=== PATIENT | male | born 1990 | race Two or more races ===

== ENCOUNTER 2018-09-25 05:43 | Emergency (ER) | payer SELFPAY ==
[2018-09-25] MEDS ORDERED: ONDANSETRON HCL INJ/PF 4 MG/2 ML SDV IV ONE (07:25)
[2018-09-25] MEDS ORDERED: NORMAL SALINE 1000 ML 1,000 ML IV ONE (07:25)
[2018-09-25 08:17] LABS: ABSOLUTE BASOPHILS # (AUTO) 0.1 10^3/uL (0.0-0.2); ABSOLUTE EOSINOPHILS # (AUTO) 0.3 10^3/uL (0.0-0.6); ABSOLUTE LYMPHOCYTES (AUTO) 1.6 10^3/uL (0.5-4.7); ABSOLUTE MONOCYTES (AUTO) 0.4 10^3/uL (0.1-1.4); ABSOLUTE NEUT (AUTO) 4.5 10^3/uL (1.7-8.2); BASOPHILS % (AUTO) 0.9 % (0-2); HEMATOCRIT 45.8 % (37.9-51.0); HEMOGLOBIN 16.5 g/dL (13.5-17.0); LYMPHOCYTES % (AUTO) 22.8 % (13-45); MEAN CORPUSCULAR HEMOGLOBIN 31.8 pg (27.0-33.4); MEAN CORPUSCULAR VOLUME 89 fl (80-97); PLATELET COUNT 151 10^3/uL (150-450); RED BLOOD COUNT 5.18 10^6/uL (4.35-5.55); RED CELL DISTRIBUTION WIDTH 13.2 % (11.5-14.0); SEGMENTED NEUTROPHILS % (AUTO) 66.3 % (42-78); TOTAL CELLS COUNTED % (AUTO) 100 %; WHITE BLOOD COUNT 6.8 10^3/uL (4.0-10.5)
[2018-09-25 08:29] LABS: APPEARANCE,URINE CLEAR; BILIRUBIN,URINE NEGATIVE (NEGATIVE); COLOR,URINE YELLOW; GLUCOSE, URINE NEGATIVE (NEGATIVE); KETONES,URINE NEGATIVE (NEGATIVE); LEUKOCYTE ESTERASE,URINE NEGATIVE (NEGATIVE); NITRITE,URINE NEGATIVE (NEGATIVE); PROTEIN,URINE NEGATIVE (NEGATIVE); URINE SPECIFIC GRAVITY 1.025
[2018-09-25 08:32] LABS: ALANINE AMINOTRANSFERASE 20 U/L (21-72); ALBUMIN 4.6 g/dL (3.5-5.0); ALKALINE PHOSPHATASE 42 U/L (38-126); ANION GAP 13 (5-19); ASPARTATE AMINO TRANSFERASE 26 U/L (17-59); BILIRUBIN,DIRECT 0.2 mg/dL (0.0-0.4); BILIRUBIN,TOTAL 0.8 mg/dL (0.2-1.3); BLOOD UREA NITROGEN 13 mg/dL (7-20); CALCIUM 9.9 mg/dL (8.4-10.2); CARBON DIOXIDE 29 mmol/L (22-30); CHLORIDE 100 mmol/L (98-107); GLUCOSE 92 mg/dL (75-110); LIPASE 236.7 U/L (23-300); POTASSIUM 4.3 mmol/L (3.6-5.0); SODIUM 141.9 mmol/L (137-145); TOTAL PROTEIN 7.2 g/dL (6.3-8.2)
[2018-09-25 09:55] LABS: CHLAM PCR NOT DETECTED (NOT DETECT); GON PCR NOT DETECTED (NOT DETECT)
--- NOTE | 2018-09-25 10:06 | ER Document Report ---
ED GI/ - General Chief Complaint: Nausea/Vomiting/Diarrhea Stated Complaint: FLU SYMPTOMS Time Seen by Provider: 09/25/18 07:05 Mode of Arrival: Ambulatory Information source: Patient Notes: Patient is a well-nourished well-developed 28-year-old male comes emergency room with 2 complaints. #1 patient states that he has been having nausea vomiting diarrhea for about 3 days. States he last vomited a before yesterday and he is last diarrhea has been this morning. The diarrhea is watery center. He also complains of some right upper quadrant pain and tenderness comes occasionally. He does not see an association between that and eating. #2 he is requesting that we check him for an STD. His ex-girlfriend told him that she had been diagnosed here with chlamydia. He is a little upset that this is occurred and is afraid he would like to check and make sure he does not have it. He denies having any drainage from his penis or discomfort or pain. Patient denies smoking and has no other medical problems. TRAVEL OUTSIDE OF THE [place] IN LAST 30 DAYS: No - HPI Patient complains to provider of: Abdominal pain, Diarrhea Onset: Other Timing/Duration: Gradual - 3 days, Better Quality of pain: Achy Severity at maximum: Mild Severity in ED: Mild Pain Level: 1 Location: RUQ. No: Left flank, Right flank, Left testicle, Right testicle Sexual history: Active, STD exposure Associated symptoms: Diarrhea, Fever, Nausea, Vomiting. denies: Penile discharge Exacerbated by: Denies Relieved by: Denies Similar symptoms previously: No Recently seen / treated by doctor: No - Related Data Allergies/Adverse Reactions: No Known Allergies Allergy (Unverified 09/25/18 05:48) Past Medical History - General Information source: Patient - Social History Smoking Status: Never Smoker Cigarette use (# per day): No Chew tobacco use (# tins/day): No Smoking Education Provided: No Frequency of alcohol use: None Drug Abuse: None Family History: Reviewed & Not Pertinent Patient has suicidal ideation: No Patient has homicidal ideation: No Renal/ Medical History: Denies: Hx Peritoneal Dialysis - Immunizations Hx Diphtheria, Pertussis, Tetanus Vaccination: No Review of Systems - Review of Systems Constitutional: Fever EENT: No symptoms reported Cardiovascular: No symptoms reported Respiratory: No symptoms reported Gastrointestinal: See HPI, Abdominal pain, Diarrhea, Nausea, Vomiting Genitourinary: No symptoms reported Male Genitourinary: See HPI. denies: Testicular pain, Penile discharge Musculoskeletal: No symptoms reported Skin: No symptoms reported Hematologic/Lymphatic: No symptoms reported Neurological/Psychological: No symptoms reported -: Yes All other systems reviewed and negative Physical Exam - Vital signs Vitals: Temp Pulse Resp BP Pulse Ox 98.4 F 59 L 17 122/75 97 09/25/18 06:13 09/25/18 06:13 09/25/18 06:13 09/25/18 06:13 09/25/18 06:13 Interpretation: Normal - Notes Notes: PHYSICAL EXAMINATION: GENERAL: Patient is well-nourished well-developed male who is in no apparent distress on physical exam today. HEAD: Atraumatic, normocephalic. ENT: Nares patent, oropharynx clear without exudates. Moist mucous membranes. NECK: Normal range of motion, supple without lymphadenopathy LUNGS: Breath sounds clear to auscultation bilaterally and equal. No wheezes rales or rhonchi. HEART: Regular rate and rhythm without murmurs ABDOMEN: Examination patient's abdomen shows it to be normal in size. Bowel sounds are present in all 4 quads. He is nontender to palpation or percussion right now. Examination of male genitalia shows normal external genitalia. There is no sign leakage from the glans penis. No tenderness to palpation no abnormal findings. Musculoskeletal: Normal range of motion, no pitting or edema. No cyanosis. NEUROLOGICAL: Normal speech, normal gait. Normal sensory, motor exams PSYCH: Normal mood, normal affect. SKIN: Warm, Dry, normal turgor, no rashes or lesions noted. Course - Re-evaluation Re-evalutation: 09/25/18 10:06 Patient stated ER has been on eventful. We had to wait a little longer time for the results of his STD check it came back nondetected. I am been informed patient that we got an option that most likely he had does not have it or I can just treated for the chlamydia if he wants me to. Patient patient states that the last time he had sexual relations with his girl was approximately 4 days ago. 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 Patient is elected to take the 4 pills of Zithromax just to be on the safe side - Vital Signs Vital signs: Temp Pulse Resp BP Pulse Ox 98 F 71 16 122/71 100 09/25/18 07:55 09/25/18 07:55 09/25/18 07:55 09/25/18 07:55 09/25/18 07:55 - Laboratory Result Diagrams: 09/25/18 07:44 09/25/18 07:44 Laboratory results interpreted by me: 09/25/18 09/25/18 07:38 07:44 ALT 20 L Urine Urobilinogen 2.0 H Discharge - Discharge Clinical Impression: STD (male), Chlamydia contact, Gastroenteritis Condition: Stable Disposition: HOME, SELF-CARE Instructions: Antinausea Medication ([facility]), Clear Liquid Diet ([facility]), Diarrhea, Nonspecific ([facility]), Gastroenteritis (adult) ([facility]), OTC Antidiarrhea Medication ( [facility]) Additional Instructions: You have elected to take the Zithromax 4 tablets all at one time this could upset her stomach and given the artery have an upset stomach with vomiting 2 days ago I will give you some Phenergan for the next couple days take it before you get nauseous or vomit. Clear liquids for the next 24 hours and advance her diet as tolerated. Should you have any concerns or problems return to ER for recheck. No sexual intercourse for 10 days. This will give a good clean window when you do start to resume activity. Prescriptions: Promethazine HCl [Phenergan 25 mg Tablet] 1 - 2 tab PO Q6H PRN #15 tablet PRN Reason: Referrals: DIANE DEL VALLE MD [Primary Care Provider] - Follow up as needed
[2018-09-25] MEDS ORDERED: AZITHROMYCIN 250 MG TABLET PO STA (10:13)
[2018-09-25 10:26] VITALS: BP 118/74
== END 2018-09-25 10:26 | disposition home or self-care (01) ==
LOC: ER 05:43
DX: K52.9 Noninfective gastroenteritis and colitis, unspecified (principal); A64 Unspecified sexually transmitted disease; R11.2 Nausea with vomiting, unspecified; R10.11 Right upper quadrant pain; R50.9 Fever, unspecified; Z20.2 Contact with and (suspected) exposure to infections with a predominantly sexual mode of transmission
CPT/HCPCS: 99283; 96361; 96374; 36415; 83690; 85025; 80053; 81001; 87491; 87591; J2405; J7030

== ENCOUNTER 2019-04-26 21:13 | Emergency (ER) | payer SELFPAY ==
[2019-04-26] MEDS ORDERED: KETOROLAC TROMETHAMINE INJ/PF 30 MG/1 ML SDV IM ONE (22:21)
--- NOTE | 2019-04-26 22:21 | ER Document Report ---
ED Medical Screen (RME) - General Chief Complaint: Chest Pain Stated Complaint: CHEST PAIN Time Seen by Provider: 04/26/19 22:14 Primary Care Provider: DIANE DEL VALLE MD [Primary Care Provider] - Follow up as needed Notes: Patient is a 29 year old male who presents to the emergency department with the chief complaint of chest pain. Patient states that he works in construction and around 11 am he developed chest pain that is located in the center of his chest and non radiating. Patient states he was not doing any strenuous work or had an injury as he was getting off of break. Patient states the chest discomfort feels like a constant tightness but worse with deep breath. Denies medical or surgical history. Denies recent cough, cold, fever or sore throat. TRAVEL OUTSIDE OF THE [place] IN LAST 30 DAYS: No - Related Data Allergies/Adverse Reactions: No Known Allergies Allergy (Unverified 09/25/18 05:48) Past Medical History Renal/ Medical History: Denies: Hx Peritoneal Dialysis - Immunizations Hx Diphtheria, Pertussis, Tetanus Vaccination: No Physical Exam - Vital signs Vitals: Temp Pulse Resp BP Pulse Ox 98.3 F 66 16 111/59 L 98 04/26/19 21:25 04/26/19 21:25 04/26/19 21:25 04/26/19 21:25 04/26/19 21:25 - Cardiovascular Rhythm: Regular Heart sounds: Normal auscultation, S1 appreciated, S2 appreciated Murmur: No Notes: + re-producible chest pain. Course - Re-evaluation Re-evalutation: 04/26/19 22:25 Patient was evaluated in triage by this provider. Basic cardiac workup ordered as well as Toradol as I think this is musculoskeletal in nature. - Vital Signs Vital signs: Temp Pulse Resp BP Pulse Ox 98.3 F 66 16 111/59 L 98 04/26/19 21:25 04/26/19 21:25 04/26/19 21:25 04/26/19 21:25 04/26/19 21:25 Doctor's Discharge - Discharge Referrals: DIANE DEL VALLE MD [Primary Care Provider] - Follow up as needed
[2019-04-26 22:44] LABS: ABSOLUTE BASOPHILS # (AUTO) 0.1 10^3/uL (0.0-0.2); ABSOLUTE EOSINOPHILS # (AUTO) 0.5 10^3/uL (0.0-0.6); ABSOLUTE LYMPHOCYTES (AUTO) 1.9 10^3/uL (0.5-4.7); ABSOLUTE MONOCYTES (AUTO) 0.8 10^3/uL (0.1-1.4); ABSOLUTE NEUT (AUTO) 9.1 10^3/uL (1.7-8.2); BASOPHILS % (AUTO) 0.6 % (0-2); EOSINOPHILS % (AUTO) 3.7 % (0-6); HEMATOCRIT 46.6 % (37.9-51.0); HEMOGLOBIN 16.7 g/dL (13.5-17.0); LYMPHOCYTES % (AUTO) 15.1 % (13-45); MEAN CORPUSCULAR HEMOGLOBIN 31.5 pg (27.0-33.4); MEAN CORPUSCULAR HGB CONC 35.9 g/dL (32.0-36.0); MEAN CORPUSCULAR VOLUME 88 fl (80-97); MONOCYTES % (AUTO) 6.3 % (3-13); PLATELET COUNT 179 10^3/uL (150-450); RED CELL DISTRIBUTION WIDTH 12.7 % (11.5-14.0); SEGMENTED NEUTROPHILS % (AUTO) 74.3 % (42-78); TOTAL CELLS COUNTED % (AUTO) 100 %; WHITE BLOOD COUNT 12.3 10^3/uL (4.0-10.5)
[2019-04-26 22:48] LABS: ALANINE AMINOTRANSFERASE 24 U/L (21-72); ALBUMIN 4.9 g/dL (3.5-5.0); ALKALINE PHOSPHATASE 50 U/L (38-126); ANION GAP 13 (5-19); ASPARTATE AMINO TRANSFERASE 36 U/L (17-59); BILIRUBIN,DIRECT 0.3 mg/dL (0.0-0.4); BILIRUBIN,TOTAL 0.6 mg/dL (0.2-1.3); BLOOD UREA NITROGEN 24 mg/dL (7-20); CALCIUM 9.8 mg/dL (8.4-10.2); CARBON DIOXIDE 28 mmol/L (22-30); CHLORIDE 95 mmol/L (98-107); GLUCOSE 84 mg/dL (75-110); POTASSIUM 3.6 mmol/L (3.6-5.0); SODIUM 135.6 mmol/L (137-145); TOTAL PROTEIN 7.7 g/dL (6.3-8.2)
--- NOTE | 2019-04-26 23:00 | RADIOLOGY REPORT (SQ) ---
EXAM DESCRIPTION: XR CHEST 2 VIEWS COMPLETED DATE/TME: 04/26/2019 22:21 CLINICAL HISTORY: chest pain COMPARISON: None. FINDINGS: Frontal and lateral views of the chest. The cardiomediastinal silhouette has normal size and contour. No consolidation, pneumothorax, or pleural effusion. No acute osseous abnormality identified. Upper abdominal soft tissues are unremarkable. IMPRESSION: 1. No acute pulmonary process identified.
--- NOTE | 2019-04-27 00:17 | EKG REPORT ---
SEVERITY:- ABNORMAL ECG - SINUS ARRHYTHMIA, RATE 56-73 NONSPECIFIC INTRAVENTRICULAR CONDUCTION DELAY : Confirmed by: Domingo Goetz 27-Apr-2019 00:17:20
--- NOTE | 2019-04-27 01:19 | ER Document Report ---
ED General - General Chief Complaint: Chest Pain Stated Complaint: CHEST PAIN Time Seen by Provider: 04/26/19 22:14 Primary Care Provider: DIANE DEL VALLE MD [Primary Care Provider] - Follow up in 3-5 days Notes: Patient is a 29-year-old male otherwise healthy that presents to the emergency department for chief complaint of chest pain. The patient reports that the pain started around 11:00 today, he states that he was at work and was taking a drink break and he took a deep breath and felt a popping in the middle of his chest, since that he said pain with taking a deep breath along his sternum on both sides, worse on the left compared to the right. It does not radiate towards the back or to the left chest or shoulder, not worse with exertion or better with rest. The currently rate the pain as 3 out of 10, and described as aching pain with a deep breath. They have had associated mild shortness of breath, secondary to the pain. Denies any diaphoresis, nausea, vomiting. Past Medical History: Denies chronic medical conditions Past Surgical History: Denies surgical history Social History: Denies tobacco, alcohol or drug use. Family History: Reviewed and noncontributory for presenting illness Allergies: Reviewed, see documented allergy list. REVIEW OF SYSTEMS: Other than noted above, the 12 point review of systems was reviewed with the patient and were negative, all pertinent findings are included in the HPI. PHYSICAL EXAMINATION: Vital signs reviewed, nursing noted reviewed. GENERAL: Well-appearing, well-nourished and in no acute distress. HEAD: Atraumatic, normocephalic. EYES: Eyes appear normal, extraocular movements intact, sclera anicteric, conjunctiva are normal. ENT: nares patent, oropharynx clear without exudates. Moist mucous membranes. NECK: Normal range of motion, supple without lymphadenopathy LUNGS: Breath sounds clear to auscultation bilaterally and equal. No wheezes rales or rhonchi. Reproducible chest wall tenderness, over the costosternal junction, worse on the left compared to the right. HEART: Regular rate and rhythm without murmurs ABDOMEN: Soft, nontender, normoactive bowel sounds. No rebound, guarding, or rigidity. No masses appreciated. EXTREMITIES: Nontender, good range of motion, no pitting or edema. NEUROLOGICAL: No focal neurological deficits. Moves all extremities spontaneously Motor and sensory grossly intact on exam. PSYCH: Normal mood, normal affect. SKIN: Warm, Dry, normal turgor, no rashes or lesions noted on exposed skin TRAVEL OUTSIDE OF THE [place] IN LAST 30 DAYS: No - Related Data Allergies/Adverse Reactions: No Known Allergies Allergy (Unverified 09/25/18 05:48) Past Medical History - Social History Smoking Status: Never Smoker Family History: Reviewed & Not Pertinent Renal/ Medical History: Denies: Hx Peritoneal Dialysis - Immunizations Hx Diphtheria, Pertussis, Tetanus Vaccination: No Physical Exam - Vital signs Vitals: Temp Pulse Resp BP Pulse Ox 98.3 F 66 16 111/59 L 98 04/26/19 21:25 04/26/19 21:25 04/26/19 21:25 04/26/19 21:25 04/26/19 21:25 Course - Re-evaluation Re-evalutation: Patient seen and examined vital signs reviewed. Laboratory data and/or imaging were ordered as appropriate for the patient's presenting symptoms and complaint, with consideration of any critical or life threatening conditions that may be associated with their obtained history and exam as noted above. Patient was treated with Toradol IM Results were reviewed when available and demonstrated unremarkable EKG, negative troponin, chest x-ray was reviewed by myself and the radiologist, is negative for pneumothorax or other acute cardiopulmonary disease The patient was re-evaluated and was stable, improved Evaluation was most consistent with chest pain, likely costochondritis, will prescribe naproxen, twice daily for the next 7 to 10 days, advised taking deep breaths and continuing his normal activities, and to follow-up with the primary care. Results were discussed with the patient at this point, after careful consideration I feel that that patient can be discharged from the emergency department, the patient was educated treatments and reasons to return to the emergency department based on their presumed diagnosis as noted above, they were advised to followup with a primary care physician in 2-3 days. Patient was agreeable to plan of care. *Note is created using voice recognition software and may contain spelling, syntax or grammatical errors. Laboratory 04/26/19 04/26/19 04/26/19 21:45 21:45 21:45 WBC 12.3 H RBC 5.30 Hgb 16.7 Hct 46.6 MCV 88 MCH 31.5 MCHC 35.9 RDW 12.7 Plt Count 179 Seg Neutrophils % 74.3 Lymphocytes % 15.1 Monocytes % 6.3 Eosinophils % 3.7 Basophils % 0.6 Absolute Neutrophils 9.1 H Absolute Lymphocytes 1.9 Absolute Monocytes 0.8 Absolute Eosinophils 0.5 Absolute Basophils 0.1 Sodium 135.6 L Potassium 3.6 Chloride 95 L Carbon Dioxide 28 Anion Gap 13 BUN 24 H Creatinine 1.22 Est GFR ( Amer) > 60 Est GFR (Non-Af Amer) > 60 Glucose 84 Calcium 9.8 Total Bilirubin 0.6 Direct Bilirubin 0.3 Neonat Total Bilirubin Not Reportable Neonat Direct Bilirubin Not Reportable Neonat Indirect Bili Not Reportable AST 36 ALT 24 Alkaline Phosphatase 50 Troponin I < 0.012 Total Protein 7.7 Albumin 4.9 Chest X-Ray 04/26/19 22:21 IMPRESSION: 1. No acute pulmonary process identified. - Vital Signs Vital signs: Temp Pulse Resp BP Pulse Ox 98.3 F 66 16 111/59 L 98 04/26/19 21:25 04/26/19 21:25 04/26/19 21:25 04/26/19 21:25 04/26/19 21:25 - Laboratory Result Diagrams: 04/26/19 21:45 04/26/19 21:45 Laboratory results interpreted by me: 04/26/19 04/26/19 21:45 21:45 WBC 12.3 H Absolute Neutrophils 9.1 H Sodium 135.6 L Chloride 95 L BUN 24 H - EKG Interpretation by Me Additional EKG results interpreted by me: EKG demonstrates sinus rhythm with a ventricular rate of 64 bpm, normal axis, normal intervals, no evidence of ischemia in this EKG, no prior for comparison. Discharge - Discharge Clinical Impression: Chest pain Qualifiers: Chest pain type: unspecified Qualified Code(s): R07.9 - Chest pain, unspecified Condition: Stable Disposition: HOME, SELF-CARE Instructions: Chest Wall Pain ([facility]), Costochondritis ([facility]) Additional Instructions: Please take the prescribed medication as directed and follow-up with the primary care physician, if your symptoms are not improving over the next 5 to 7 days, or they are worsening, do not hesitate to return to the emergency department. Prescriptions: Naproxen 500 mg PO BID #30 tablet Referrals: DIANE DEL VALLE MD [Primary Care Provider] - Follow up in 3-5 days
[2019-04-27 01:59] VITALS: BP 111/71
== END 2019-04-27 01:59 | disposition home or self-care (01) ==
LOC: ER 21:13
DX: R07.1 Chest pain on breathing (principal); R06.02 Shortness of breath
CPT/HCPCS: 93005; 99285; 96372; 36415; 85025; 80053; 84484; 71046; 93010; J1885